=== PATIENT | female | born 1940 | race Caucasian/White ===

== ENCOUNTER → 2024-07-25 | Outpatient (CLI) | payer MEDICARE, SELFPAY ==
[2024-07-25 10:12] LABS: Basophils # (Auto) 0.1 Thou/mm3 (0.0-0.2); Basophils % (Auto) 1 % (0-2.5); Eosinophils # (Auto) 0.3 Thou/mm3 (0.0-0.5); Eosinophils % (Auto) 6 % (0-10); Hematocrit 41.6 % (36.0-46.0); Hemoglobin 13.5 g/dL (12.0-16.0); Immature Granulocytes % (Auto) 0 % (0-0); Immature Granulocytes Auto 0.01 Thou/mm3 (0.00-0.00); Lymphocytes # (Auto) 1.6 Thou/mm3 (1.0-4.8); Lymphocytes % (Auto) 28 % (10-50); Mean Corpuscular HGB Conc 32.5 g/dl (31.0-37.0); Mean Corpuscular Hemoglobin 30.9 pg (25.0-35.0); Mean Corpuscular Volume 95 fL (80-100); Monocytes # (Auto) 0.5 Thou/mm3 (0.0-0.8); Monocytes % (Auto) 9 % (0-12); Neutrophils # (Auto) 3.3 Thou/mm3 (1.8-7.7); Neutrophils % (Auto) 56 % (37-80); Nucleated Red Blood Cell % 0 /100 WBC (0); Platelet Count 217 Thou/mm3 (140-440); RDW Standard Deviation 48.3 fL (36.4-46.3); Red Blood Count 4.37 Miln/mm3 (4.00-5.20); White Blood Count 5.8 Thou/mm3 (3.6-11.0)
[2024-07-25 10:43] LABS: Folate 10.96 ng/mL (>5.38); Vitamin B12 283 pg/mL (211-911)
[2024-07-25 10:52] LABS: Alanine Aminotransferase 18 U/L (10-49); Albumin, Serum 4.4 gm/dL (3.4-4.8); Albumin/Globulin Ratio 1.7 (1.2-2.2); Alkaline Phosphatase 74 U/L (46-116); Anion Gap 10 (7-16); Aspartate Amino Transferase 16 U/L (0-34); BUN/Creatinine Ratio 31 Ratio (12-20); Bilirubin,Total 0.6 mg/dL (0.3-1.2); Blood Urea Nitrogen 25 mg/dL (9-23); Calcium 9.7 mg/dL (8.3-10.6); Calcium (Corrected) 9.7 mg/dL (8.5-10.1); Carbon Dioxide 24.7 mMol/L (20.0-31.0); Cardiac Risk Estimate 2.8 RATIO (3.7-5.6); Chloride 106 mMol/L (98-107); Cholesterol 177 mg/dL (132-200); Creatinine (Component) 0.8 mg/dL (0.6-1.3); Globulin 2.6 gm/dL (2.3-3.5); Glucose 106 mg/dL (74-106); HDL Cholesterol 63 mg/dL (40-60); LDL Cholesterol,Calculated 98 mg/dL (0-130); Osmolality,Calculated 285 (275-295); Potassium 4.4 mMol/L (3.4-5.1); Sodium 141 mMol/L (136-145); Thyroid Stimulating Hormone 4.39 uIU/mL (0.55-4.78); Triglycerides 82 mg/dL (30-150); eGFR > 60 See Note
[2024-07-25 10:53] LABS: Glucose Estimated Average 114 mg/dL (80-131); Hemoglobin A1C 5.6 % Hgb (4.8-6.0)
[2024-07-25 11:35] LABS: Cocci Serology, IgM Negative (Negative)
[2024-07-27 16:07] LABS: Cocci Serology, IgG Negative (Negative)
== END | disposition home or self-care (01) ==
PROVIDERS: PCP Internal Medicine; Referring Provider Internal Medicine; Visit Provider Internal Medicine
DX: K58.9 Irritable bowel syndrome, unspecified (principal); N39.0 Urinary tract infection, site not specified; N39.45 Continuous leakage; B96.89 Other specified bacterial agents as the cause of diseases classified elsewhere; N39.46 Mixed incontinence; R20.2 Paresthesia of skin; R25.2 Cramp and spasm; R35.0 Frequency of micturition; R42 Dizziness and giddiness; R61 Generalized hyperhidrosis; R73.03 Prediabetes; Z79.899 Other long term (current) drug therapy
CPT/HCPCS: 36415; 80053; 80061; 82306; 82607; 82746; 83036; 83735; 84443; 85025; 86331; 86635

== ENCOUNTER → 2024-08-28 | Outpatient (CLI) | payer MEDICARE, BC, SELFPAY ==
--- NOTE | 2024-08-28 10:30 | XR_ITS ---
Examination: Arterial duplex lower extremity study. Date and time of exam: August 28, 2024 1027 hours INDICATIONS: Cold lower extremities 3 months, diagnosis hypertension Findings: Duplex sonographic imaging of the lower extremity arteries using B-mode/Cummings scale imaging and Doppler spectral analysis and color flow. Ankle brachial indices have been recorded. Right common femoral artery demonstrates triphasic flow. Right superficial femoral artery demonstrates triphasic flow. Right popliteal artery demonstrates triphasic flow. Right posterior tibial artery demonstrated triphasic flow. Right ankle/brachial index is 1.2. Left common femoral artery demonstrates triphasic flow. Left superficial femoral artery demonstrates triphasic flow. Left popliteal artery demonstrates triphasic flow. Left posterior tibial artery demonstrated triphasic flow. Left ankle/brachial index is 1.1. Impression: Negative study
== END | disposition home or self-care (01) ==
LOC: CDIM 10:09
PROVIDERS: Referring Provider Internal Medicine; Visit Provider Internal Medicine
DX: R20.9 Unspecified disturbances of skin sensation (principal)
CPT/HCPCS: 93925

== ENCOUNTER 2025-01-04 15:37 | Emergency (ER) | payer MEDICARE, BC, SELFPAY ==
[2025-01-04 15:37] VITALS: BMI 31.9
[2025-01-04 15:57] VITALS: BP 126/75; PULSE 85; RESP 16; TEMP 36.8; O2SAT 95
--- NOTE | 2025-01-04 16:11 | PD.EDRME ---
Rapid Medical Screening Exam RME Arrival date/time: 01/04/25 15:37 Chief Complaint: Syncope / Near Syncope Time Seen by Provider: 01/04/25 16:01 Vital signs: Vital Signs Temperature 98.3 F 01/04/25 15:57 Pulse Rate 85 01/04/25 15:57 Respiratory Rate 16 01/04/25 15:57 Blood Pressure 126/75 01/04/25 15:57 Pulse Oximetry (%) 95 01/04/25 15:57 Oxygen Delivery Method Room Air 01/04/25 15:57 RME Narrative: 84-year-old female brought in by her grandson was sent over by urgent care after concerns of a UTI and thought she had sepsis however patient does not have fever nor increased heart rate. States at one time 4 years ago she was very confused and it turns out she was having a UTI and feels exactly like that again. Was told Eliquis and Rocephin cannot be given together.
[2025-01-04 17:13] LABS: Collection Type, Urine Clean Catch
[2025-01-04 17:36] LABS: Lactate (Lactic Acid) 1.5 mMol/L (0.4-2.0)
[2025-01-04 17:38] LABS: Base Excess, Venous -1 (-3-3); Basophils # (Auto) 0.0 Thou/mm3 (0.0-0.2); Basophils % (Auto) 1 % (0-2.5); Eosinophils # (Auto) 0.1 Thou/mm3 (0.0-0.5); Eosinophils % (Auto) 2 % (0-10); Hematocrit 41.5 % (36.0-46.0); Hemoglobin 13.7 g/dL (12.0-16.0); Immature Granulocytes Auto 0.02 Thou/mm3 (0.00-0.00); Lymphocytes # (Auto) 1.9 Thou/mm3 (1.0-4.8); Lymphocytes % (Auto) 32 % (10-50); Mean Corpuscular HGB Conc 33.0 g/dl (31.0-37.0); Mean Corpuscular Hemoglobin 32.2 pg (25.0-35.0); Mean Corpuscular Volume 98 fL (80-100); Monocytes # (Auto) 0.5 Thou/mm3 (0.0-0.8); Monocytes % (Auto) 9 % (0-12); Neutrophils # (Auto) 3.3 Thou/mm3 (1.8-7.7); Neutrophils % (Auto) 56 % (37-80); Nucleated Red Blood Cell # 0.00 Thou/mm3 (0.00-0.00); Nucleated Red Blood Cell % 0 /100 WBC (0); O2 Saturation, Venous 80 % (96-97); PCO2, Venous 35 mmHg (36-56); PO2, Venous 40 mmHg (15-58); Platelet Count 198 Thou/mm3 (140-440); RDW Standard Deviation 47.0 fL (36.4-46.3); Red Blood Count 4.25 Miln/mm3 (4.00-5.20); White Blood Count 5.9 Thou/mm3 (3.6-11.0); pH, Venous 7.43 (7.33-7.66)
[2025-01-04 17:49] LABS: Bacteria,Urine 4+; Bilirubin,Urine Negative (Negative); Blood,Urine Negative (Negative); Clarity,Urine Clear (Clear/Hazy); Color,Urine Lt-Yellow (Lt Yel-Yel); Glucose, Urine Negative (Negative); Ketones,Urine Negative (Negative); Leukocyte Esterase,Urine Positive (Negative); Nitrite,Urine Negative (Negative); PH,Urine 5.0 (5.0-7.0); Protein,Urine Negative (Neg - Trace); RBC,Urine 5 /hpf (0-3); Specific Gravity,Urine 1.028 (1.001-1.035); Squamous Epithelial Cell,Urine 4 /hpf (0-5); Urobilinogen,Urine Negative mg/dL (0.0-1.0); WBC,Urine 37 /hpf (0-5)
[2025-01-04 18:02] LABS: Anion Gap 11 (7-16); BUN/Creatinine Ratio 20 Ratio (12-20); Blood Urea Nitrogen 20 mg/dL (9-23); Carbon Dioxide 24.3 mMol/L (20.0-31.0); Chloride 106 mMol/L (98-107); Creatinine (Component) 1.0 mg/dL (0.6-1.3); Estimated Creatinine Clearance 44.0 mL/min (>60); Glucose 102 mg/dL (74-106); Potassium 4.2 mMol/L (3.4-5.1); Sodium 141 mMol/L (136-145); eGFR 55 See Note
[2025-01-04 18:03] LABS: Alanine Aminotransferase 15 U/L (10-49); Albumin, Serum 4.4 gm/dL (3.4-4.8); Albumin/Globulin Ratio 1.8 (1.2-2.2); Alkaline Phosphatase 70 U/L (46-116); Aspartate Amino Transferase 17 U/L (0-34); Bilirubin,Total 0.5 mg/dL (0.3-1.2); Calcium 10.4 mg/dL (8.3-10.6); Calcium (Corrected) 10.4 mg/dL (8.5-10.1); Globulin 2.5 gm/dL (2.3-3.5); Lipase 17 U/L (12-53); Osmolality,Calculated 283 (275-295); Procalcitonin 0.06 ng/ml (0.0-0.49); Total Protein 6.9 gm/dL (5.7-8.2)
[2025-01-04 19:24] VITALS: BP 165/86; PULSE 79; RESP 18; O2SAT 96
--- NOTE | 2025-01-04 19:30 | PD.EDFMALE ---
ED Female Urogenital RME/HPI General Chief complaint: Syncope / Near Syncope Stated complaint: NEAR SYNCOPE Time Seen by Provider: 01/04/25 16:01 Arrival date/time: 01/04/25 15:37 RME / HPI RME / HPI Narrative: 84-year-old female brought in by her grandson was sent over by urgent care after concerns of a UTI and thought she had sepsis however patient does not have fever nor increased heart rate. States at one time 4 years ago she was very confused and it turns out she was having a UTI and feels exactly like that again. Was told Eliquis and Rocephin cannot be given together. Related Data Home Medications ?Medication ?Instructions ?Recorded ?Confirmed losartan 100 mg tablet 100 mg PO QDAY 03/02/20 12/06/21 amlodipine 5 mg tablet 5 mg PO QDAY 06/03/21 12/06/21 dicyclomine 10 mg capsule 10 mg PO TID 06/03/21 12/06/21 escitalopram oxalate 10 mg tablet 10 mg PO QDAY 06/03/21 12/06/21 famotidine 40 mg tablet 40 mg PO HS 06/03/21 12/06/21 mupirocin 2 % topical ointment See Rx Instructions .Route .COMPLEX 12/06/21 12/06/21 promethazine 25 mg tablet 1 tab PO BID 12/06/21 12/06/21 Previous Rx's ?Medication ?Instructions ?Recorded cephalexin 500 mg capsule 1,000 mg (2 x 500 mg) PO BID 5 01/04/25 days #20 caps Allergies Allergy/AdvReac Type Severity Reaction Status Date / Time Penicillins Allergy Severe Rash, HIVES Verified 12/06/21 09:08 codeine AdvReac Severe PASSES OUT Verified 12/06/21 09:08 ED Exam Narrative Physical exam: Generally patient is alert and in no obvious distress, heart regular rate and rhythm, lungs clear to auscultation equal bilaterally, abdomen soft bowel sounds present nondistended nontender. Neurologic exam no motor deficit [place] Coma Scale is 15, skin is warm and dry without rash Course Quality Measures none Orders Category Date Time Status Blood Culture (Lab) Stat Lab 01/04/25 17:12 Received CBC Stat Lab 01/04/25 17:12 Completed CMP [Comprehensive Metabolic Panel] Stat Lab 01/04/25 17:12 Completed Lactic Acid [Lactate (Lactic Acid)] Stat Lab 01/04/25 17:12 Completed Lipase Stat Lab 01/04/25 17:12 Completed Procalcitonin Stat Lab 01/04/25 17:12 Completed UA [Urinalysis] Stat Lab 01/04/25 17:00 Completed VBG [Venous Blood Gas] Stat Lab 01/04/25 17:12 Completed cefTRIAXone [Rocephin] 1,000 mg Med 01/04/25 19:32 Pending Lidocaine 1% 20 ml [Xylocaine 1% 20 ML] 2.1 ml IM X1 Vital Signs Vital signs: Vital Signs Temperature 98.3 F 01/04/25 15:57 Pulse Rate 85 01/04/25 15:57 Respiratory Rate 16 01/04/25 15:57 Blood Pressure 126/75 01/04/25 15:57 Pulse Oximetry (%) 95 01/04/25 15:57 Oxygen Delivery Method Room Air 01/04/25 15:57 Urogenital - Female MDM Narrative MDM Narrative:: Patient has no SIRS criteria. I interpreted all labs. Urine is infected. Patient received Rocephin 1 g IM. Cephalexin as prescribed. Follow-up with her doctor. Return to ER as needed or if condition worsens. Patient data External records reviewed:: Other (specify) Clinical information provided by:: none Social determinants that could affect healthcare access:: none Patient has the following chronic illnesses:: None How is presenting disease/condition affected by chronic disease/condition?: no chronic disease Evaluation data The following diagnostics were reviewed and interpreted by me:: other (specify) Lab and/or radiology exams considered but not ordered:: None Interpretation Summary: None Medications / Prescriptions Medications or Prescriptions considered but not ordered:: None Medication administrations:: Medication Administration History Ceftriaxone Sodium 1,000 mg/ (Lidocaine HCl 2.1 ml) 0 mg IM X1 ONE Stop: 01/04/25 19:33 None Consultations Consultation(s) initiated? (list below): No Diagnosis Urogenital Female Differential Diagnosis: urinary tract infection and cystitis Most likely diagnosis given after review of the tests above:: None Admission Indicated Admission indicated?: not indicated Admission Request Was there a request for admission?: No Disposition Plan Disposition Plan: Discharge Discharge Attestation Discharge Attestation: The patient and all family members were given an opportunity to ask questions and understood the discharge instructions. Discharge instructions specifically effects, indications for sooner follow up or return to the emergency department, and the expected course of current diagnosis. Patient condition: Stable Discharge Plan Plan Patient Disposition: HOME (Self Care) Prescriptions/Referrals Prescriptions/Med Rec: New cephalexin 500 mg capsule 1,000 mg PO BID 5 Days Qty: 20 0RF No Action famotidine 40 mg tablet 40 mg PO HS amlodipine 5 mg tablet 5 mg PO QDAY dicyclomine 10 mg capsule 10 mg PO TID escitalopram oxalate 10 mg tablet 10 mg PO QDAY losartan 100 mg tablet 100 mg PO QDAY promethazine 25 mg tablet 1 tab PO BID Patient Comments: TAKE ONE TABLET BY MOUTH IN THE MORNING AND AT BEDTIME Rx Instructions: TAKE 1 TABLET BY MOUTH IN THE MORNING AND IN THE EVENING mupirocin 2 % ointment See Rx Instructions .ROUTE .COMPLEX Patient Comments: APPLY TO AFFECTED AREA ON CHEEK TWICE A DAY FOR 2 WEEKS THEN NEEDED Rx Instructions: APPLY TO AFFECTED AREA ON CHEEK TWICE A DAY FOR 2 WEEK TEN NEEDED Referrals: Mendy Mendez MD [Primary Care Provider] - In 1 week Problem List Clinical Impression: Acute UTI Patient/Caregiver Discharge Instructions Education Materials: Urinary Tract Infections in Women Additional Instructions: Take the antibiotic as prescribed. Follow-up with your doctor. Return to ER as needed or if condition worsens. Print Language: Albanian Stand Alone Forms: [facility] Award Info., Patient Portal Info Letter
--- NOTE | 2025-01-04 19:42 | PD.EDADDENDU ---
Emergency Room Addendum Addendum Narrative: HPI: 84-year-old female with a 2-day history of feeling weak and out of it. No fevers. No vomiting. No chest pain or shortness of breath. She has felt like this in the past whenever she has a urine infection. She was seen and evaluated in outside urgent care today and referred here to the emergency room for further treatment and evaluation for a possible urinary tract infection. Patient denies any back pain.
[2025-01-04] MEDS: cefTRIAXone 1,000 MG, LIDOCAINE 1% 20 ML 2.1 ML IM (20:10)
== END 2025-01-04 20:17 | disposition home or self-care (01) ==
PROVIDERS: Physician Assistant; Emergency Provider Emergency Medicine; PCP Internal Medicine
DX: N39.0 Urinary tract infection, site not specified (principal)
CPT/HCPCS: 36415; 80053; 81001; 82803; 83605; 83690; 84145; 85025; 87040; 96372; 99283; J0696; J3490

== ENCOUNTER → 2025-01-09 | Outpatient (CLI) | payer MEDICARE, BC, SELFPAY ==
--- NOTE | 2025-01-09 13:18 | XR_ITS ---
Examination: PA lateral chest 2 views TECHNIQUE: Upright PA lateral chest 2 views Date and time: January 09, 2025 1327 hours, comparison February 14, 2024 INDICATIONS: Chest wall pain beginning one month ago. FINDINGS: Normal heart size Ectatic thoracic aorta. Accentuation bronchovascular markings more prominent at the left base No pulmonary edema Severe osteopenia IMPRESSION: Basilar bronchitis pattern
== END | disposition home or self-care (01) ==
LOC: COPL 13:05 → CDIM 01-27 11:10
PROVIDERS: PCP Internal Medicine; Referring Provider Internal Medicine; Visit Provider Internal Medicine
DX: R07.89 Other chest pain (principal)
CPT/HCPCS: 71046

== ENCOUNTER → 2025-01-21 | Outpatient (CLI) | payer MEDICARE, BC, SELFPAY ==
[2025-01-21 18:06] LABS: Clostridium Difficile PCR Negative (Negative)
== END | disposition home or self-care (01) ==
LOC: SLDO 13:40
PROVIDERS: PCP Internal Medicine; Referring Provider Internal Medicine; Visit Provider Internal Medicine
DX: R19.7 Diarrhea, unspecified (principal)
CPT/HCPCS: 87493

== ENCOUNTER 2025-04-09 13:36 | Emergency (ER) | payer MEDICARE, BC, SELFPAY ==
[2025-04-09] VITALS (7 sets, daily range): BP systolic 94–151; BP diastolic 52–81; PULSE 84–114; RESP 16–20; TEMP 36.7–37.3; O2SAT 93–96; BMI 29.0
--- NOTE | 2025-04-09 14:00 | PC.NURSE ---
pt brought in by ambulance due to increased weakness and having uti and not getting better. pt has been on abx po therapy and recently switched but not feeling any better and has increased weakness throughout body and freq urination. no fever.
--- NOTE | 2025-04-09 14:11 | EKG_ITS ---
[facility] Test Date: 2025-04-09 Pat Name: DONOVAN NAQVI Department: Room: - Gender: Female Enrolled Agent: : [id number] Requested By: Gema Lama Order Number: [id number] Reading MD: Gema Lama Measurements Intervals Yancey Rate: 97 P: 61 CT: 136 QRS: -42 QRSD: 84 T: 66 QT: 324 QTc: 413 Interpretive Statements SINUS RHYTHM WITH OCCASIONAL SUPRAVENTRICULAR PREMATURE COMPLEXES LEFT AXIS DEVIATION [QRS AXIS < -30] PATTERN CONSISTENT WITH PULMONARY DISEASE NONSPECIFIC T-WAVE ABNORMALITY Compared to ECG 06/22/2020 15:05:02 Left-axis deviation now present T-wave abnormality now present /store/S0/[id number]/ecg/[id number].pdf
--- NOTE | 2025-04-09 14:11 | XR_ITS ---
EXAMINATION: AP chest single view TECHNIQUE: Portable upright AP chest single view Date and time: April 09, 2025, 1419 hours INDICATIONS: Chest pain weakness today. FINDINGS: Suspicious for early pneumonia left base obscuring detail left hemidiaphragm Minor prominence left ventricle Ectatic thoracic aorta. Mild vascular congestion. Severe osteopenia IMPRESSION: Suspicious for early pneumonia left base
[2025-04-09] MEDS: SODIUM CHLORIDE 0.9% 1000 ML 1,000 ML 999 ML IV (14:23)
[2025-04-09 15:09] LABS: Lactate (Lactic Acid) 1.5 mMol/L (0.4-2.0)
[2025-04-09 15:15] LABS: Basophils # (Auto) 0.0 Thou/mm3 (0.0-0.2); Basophils % (Auto) 1 % (0-2.5); Eosinophils # (Auto) 0.2 Thou/mm3 (0.0-0.5); Eosinophils % (Auto) 3 % (0-10); Hematocrit 40.7 % (36.0-46.0); Hemoglobin 13.2 g/dL (12.0-16.0); Immature Granulocytes Auto 0.01 Thou/mm3 (0.00-0.00); Lymphocytes # (Auto) 1.3 Thou/mm3 (1.0-4.8); Lymphocytes % (Auto) 22 % (10-50); Mean Corpuscular HGB Conc 32.4 g/dl (31.0-37.0); Mean Corpuscular Hemoglobin 32.1 pg (25.0-35.0); Mean Corpuscular Volume 99 fL (80-100); Monocytes # (Auto) 0.5 Thou/mm3 (0.0-0.8); Monocytes % (Auto) 9 % (0-12); Neutrophils # (Auto) 4.0 Thou/mm3 (1.8-7.7); Neutrophils % (Auto) 66 % (37-80); Nucleated Red Blood Cell # 0.00 Thou/mm3 (0.00-0.00); Nucleated Red Blood Cell % 0 /100 WBC (0); Platelet Count 221 Thou/mm3 (140-440); RDW Standard Deviation 47.9 fL (36.4-46.3); Red Blood Count 4.11 Miln/mm3 (4.00-5.20); White Blood Count 6.1 Thou/mm3 (3.6-11.0)
[2025-04-09 15:38] LABS: INR 1.0 (0.9-1.3); Partial Thromboplastin Time 28.9 Seconds (22.0-36.0); Prothrombin Time 10.8 Seconds (9.0-12.2)
[2025-04-09 15:40] LABS: B-Type Natriuretic Peptide < 20 pg/mL (0-100)
[2025-04-09 15:50] LABS: Alanine Aminotransferase 17 U/L (10-49); Albumin, Serum 4.6 gm/dL (3.4-4.8); Albumin/Globulin Ratio 1.7 (1.2-2.2); Alkaline Phosphatase 74 U/L (46-116); Anion Gap 10 (7-16); Aspartate Amino Transferase 23 U/L (0-34); BUN/Creatinine Ratio 15 Ratio (12-20); Bilirubin,Total 0.6 mg/dL (0.3-1.2); Blood Urea Nitrogen 23 mg/dL (9-23); Calcium 9.7 mg/dL (8.3-10.6); Calcium (Corrected) 9.7 mg/dL (8.5-10.1); Carbon Dioxide 26.0 mMol/L (20.0-31.0); Chloride 104 mMol/L (98-107); Creatinine (Component) 1.5 mg/dL (0.6-1.3); Estimated Creatinine Clearance 28.5 mL/min (>60); Globulin 2.7 gm/dL (2.3-3.5); Glucose 110 mg/dL (74-106); Lipase 20 U/L (12-53); Magnesium 2.3 mg/dL (1.6-2.6); Osmolality,Calculated 284 (275-295); Potassium 5.0 mMol/L (3.4-5.1); Procalcitonin 0.07 ng/ml (0.0-0.49); Sodium 140 mMol/L (136-145); Total Protein 7.3 gm/dL (5.7-8.2); Troponin I < 0.020 ng/mL (0.0-0.045); eGFR 34 See Note
--- NOTE | 2025-04-09 16:21 | PD.EDWEAK ---
ED Weakness RME/HPI General Chief complaint: General Adult/Misc Complain Stated complaint: WEAKNESS Time Seen by Provider: 04/09/25 13:46 Arrival date/time: 04/09/25 13:36 RME / HPI RME / HPI Narrative: 85 year old female with history of hiatal hernia repair at [facility] 3 years ago, hypertension, hyperlipidemia, pulmonary embolism presents to the ED with complaint of global weakness and a sensation of not feeling right. Patient reports experiencing a tingling sensation throughout her body. States 9 days ago the patient consulted with urologist for urinary incontinence and underwent a cystoscopy. Following the procedure, she was prescribed antibiotics, but two days ago, she was contacted and switched to Bactrim based on the results of a urine culture. She has been on Bactrim since then. Patient denies any associated fever, chills, cough, or urinary symptoms. Also denies any vomiting, diarrhea, or abdominal pain. Related Data Home Medications ?Medication ?Instructions ?Recorded ?Confirmed losartan 100 mg tablet 100 mg PO QDAY 03/02/20 12/06/21 amlodipine 5 mg tablet 5 mg PO QDAY 06/03/21 12/06/21 dicyclomine 10 mg capsule 10 mg PO TID 06/03/21 12/06/21 escitalopram oxalate 10 mg tablet 10 mg PO QDAY 06/03/21 12/06/21 famotidine 40 mg tablet 40 mg PO HS 06/03/21 12/06/21 mupirocin 2 % topical ointment See Rx Instructions .Route .COMPLEX 12/06/21 12/06/21 promethazine 25 mg tablet 1 tab PO BID 12/06/21 12/06/21 Allergies Allergy/AdvReac Type Severity Reaction Status Date / Time Penicillins Allergy Severe Rash, HIVES Verified 04/09/25 13:42 codeine AdvReac Severe PASSES OUT Verified 04/09/25 13:42 Review of Systems Review of Systems Systems Reviewed: All systems reviewed, normal except as documented Past Medical History Past Medical History CARDIAC: Positive Hypertension RESPIRATORY: Positive Sleep Apnea GASTROINTESTINAL: Positive Gastrointestinal Disorders, Gall Bladder Disease, Hiatal Hernia, Gastroesophageal Reflux Disease and Obesity REPRODUCTIVE: Positive Previous Pregnancies MUSCULOSKELETAL: Positive Musculoskeletal Disorders, Arthritis and Degenerative Joint Disease ENT: Positive Cataracts and Deafness PSYCHO/SOCIAL: Positive Depression and Anxiety OTHER HISTORY: Positive Falls, Blood Transfusions, Chicken Pox, Measles and Mumps Family History FAMILY HISTORY: Positive Family Cardiac Disorders and Family Cancer Surgical History SURGICAL: Positive Joint Replacement; Negative Mastectomy Social History SMOKING STATUS: Never smoker SUBSTANCE USE: does not use ED Exam Narrative Physical exam: GENERAL APPEARANCE: alert and oriented x 4, well-developed, well-nourished, no acute distress HEENT: Normocephalic, atraumatic; pupils equal, round, reactive to light; EOMI; mucous membranes pink, moist; oropharynx clear NECK: Supple LUNGS: CTABL; no wheezes, no rales, no rhonchi HEART: Regular rate, regular rhythm; normal S1, S2; no murmurs ABDOMEN: non distended; normal BS; soft, no tenderness, no guarding, no rebound; no masses, no organomegaly, no hernia BACK: no CVA tenderness EXTREMITIES: atraumatic; no edema NEUROLOGIC: awake; alert and oriented x4; cranial nerves II-XII grossly intact; no focal sensory or motor deficits PSYCHIATRIC: appropriate mood and affect SKIN: warm, dry, normal color; no rashes Course Quality Measures none Orders Category Date Time Status Bedside COVID-19 Antigen Test NOW Care 04/09/25 16:32 Active Is Technician NOW Care 04/09/25 14:11 Active EKG (ED ONLY) *Do not use* NOW Care 04/09/25 14:11 Completed EKG (ED Only) Stat Exams 04/09/25 14:11 Draft XR chest 1V portable Stat Exams 04/09/25 14:11 Completed B-Type Natriuretic Peptide Stat Lab 04/09/25 15:03 Completed Blood Culture (Lab) Stat Lab 04/09/25 14:58 Received CBC Stat Lab 04/09/25 15:03 Completed COVID-19 Antigen (In-House) Stat Lab 04/09/25 Ordered Comprehensive Metabolic Panel Stat Lab 04/09/25 15:03 Completed Influenza A & B Rapid Panel Stat Lab 04/09/25 16:32 Ordered Lactate (Lactic Acid) Stat Lab 04/09/25 15:03 Completed Lipase Stat Lab 04/09/25 15:03 Completed Magnesium Stat Lab 04/09/25 15:03 Completed Partial Thromboplastin Time Stat Lab 04/09/25 15:03 Completed Procalcitonin Stat Lab 04/09/25 15:03 Completed Prothrombin Time with INR Stat Lab 04/09/25 15:03 Completed Troponin I Stat Lab 04/09/25 15:03 Completed Urinalysis Stat Lab 04/09/25 16:54 Received Urine Culture Stat Lab 04/09/25 16:54 Received Sodium Chloride 0.9% 1000 ml [Ns] 1,000 ml Med 04/09/25 14:14 Discontinued IV 999 mls/hr Vital Signs Vital signs: Vital Signs Temperature 98.6 F 04/09/25 13:55 Pulse Rate 114 H 04/09/25 13:55 Respiratory Rate 16 04/09/25 13:55 Blood Pressure 94/52 L 04/09/25 13:55 Pulse Oximetry (%) 93 L 04/09/25 13:55 Oxygen Delivery Method Room Air 04/09/25 13:55 Weakness MDM Narrative MDM Narrative:: Kellie Vasquez am scribing for and in the presence of Dr. Delaney. 1800: Care signed out to Dr. Hope pending UA and final dispo. Patient data External records reviewed:: [facility] previous records and EMS form Clinical information provided by:: patient and EMS Social determinants that could affect healthcare access:: none Patient has the following chronic illnesses:: hiatal hernia repair at [facility] 3 years ago, hypertension, hyperlipidemia, pulmonary embolism How is presenting disease/condition affected by chronic disease/condition?: exacerbated by Evaluation data The following diagnostics were reviewed and interpreted by me:: lab results, radiology exam(s) and EKG tracing(s) (EKG @ 14:18, normal sinus rhythm, rate 97, left axis deviation. ) Lab and/or radiology exams considered but not ordered:: None Interpretation Summary: Ordering Physician: Gema Delaney MD Date of Service: 04/09/25 Procedure(s): XR chest 1V portable Accession Number(s): [id number] cc: Han Moncada MD; Gema Delaney MD~ EXAMINATION: AP chest single view TECHNIQUE: Portable upright AP chest single view Date and time: April 09, 2025, 1419 hours INDICATIONS: Chest pain weakness today. FINDINGS: Suspicious for early pneumonia left base obscuring detail left hemidiaphragm Minor prominence left ventricle Ectatic thoracic aorta. Mild vascular congestion. Severe osteopenia IMPRESSION: Suspicious for early pneumonia left base Dictated By: Han Moncada MD Signed By: <Electronically signed by Han Moncada MD in OV> 04/09/25 1440 Medications / Prescriptions Medications or Prescriptions considered but not ordered:: None Medication administrations:: Medication Administration History Discontinued Medications Sodium Chloride (Ns) 1,000 mls @ 999 mls/hr IV .Q1H1M ONE Stop: 04/09/25 15:14 Last Infusion: 04/09/25 17:09 Dose: Infused Documented By: Admin: 04/09/25 14:23 Dose: 999 mls/hr Documented By: VIRI See above Consultations Consultation(s) initiated? (list below): No Diagnosis Weakness Differential Diagnosis: anemia, hypoglycemia, sepsis, dehydration and other (UTI ) Most likely diagnosis given after review of the tests above:: Weakness Admission Indicated Admission indicated?: not indicated Admission Request Was there a request for admission?: No Disposition Plan Disposition Plan: other (specify) (Care signed out to Dr. Hope) Discharge Plan Prescriptions/Referrals Prescriptions/Med Rec: No Action famotidine 40 mg tablet 40 mg PO HS amlodipine 5 mg tablet 5 mg PO QDAY dicyclomine 10 mg capsule 10 mg PO TID escitalopram oxalate 10 mg tablet 10 mg PO QDAY losartan 100 mg tablet 100 mg PO QDAY promethazine 25 mg tablet 1 tab PO BID Patient Comments: TAKE ONE TABLET BY MOUTH IN THE MORNING AND AT BEDTIME Rx Instructions: TAKE 1 TABLET BY MOUTH IN THE MORNING AND IN THE EVENING mupirocin 2 % ointment See Rx Instructions .ROUTE .COMPLEX Patient Comments: APPLY TO AFFECTED AREA ON CHEEK TWICE A DAY FOR 2 WEEKS THEN NEEDED Rx Instructions: APPLY TO AFFECTED AREA ON CHEEK TWICE A DAY FOR 2 WEEK TEN NEEDED Referrals: Ayanna Mendez MD [Primary Care Provider] - In 1 week Problem List Clinical Impression: Generalized weakness Patient/Caregiver Discharge Instructions Print Language: Turkmen
[2025-04-09 18:10] LABS: Collection Type, Urine Clean Catch
[2025-04-09 19:27] LABS: Influenza A Ag Negative; Influenza B Ag Negative
[2025-04-09 19:28] LABS: Bilirubin,Urine Negative (Negative); Blood,Urine Negative (Negative); Clarity,Urine Clear (Clear/Hazy); Color,Urine Yellow (Lt Yel-Yel); Glucose, Urine Negative (Negative); Hyaline Casts,Urine < 1 /hpf (0-1); Ketones,Urine Trace (Negative); Leukocyte Esterase,Urine Positive (Negative); Nitrite,Urine Negative (Negative); PH,Urine 6.0 (5.0-7.0); Protein,Urine Negative (Neg - Trace); RBC,Urine 1 /hpf (0-3); Specific Gravity,Urine 1.024 (1.001-1.035); Squamous Epithelial Cell,Urine 3 /hpf (0-5); Urobilinogen,Urine Negative mg/dL (0.0-1.0); WBC,Urine 4 /hpf (0-5)
[2025-04-09 19:28] LABS: COVID-19 Antigen (In-House) Negative (Negative)
--- NOTE | 2025-04-09 20:04 | PD.EDADDENDU ---
Emergency Room Addendum Addendum Narrative: Please see previous note by Dr. Contreras. She did a complete history and physical exam on this patient. Patient was signed out to me at approximately 1800 pending repeat urinalysis. Patient states that she just generally does not feel well the last few days. She has been on Bactrim for UTI. Physical exam, vital signs are stable here in the emergency department. Lungs are clear bilaterally, abdomen is soft nontender nondistended. Otherwise the patient has no pedal edema. Patient does not state that she has a fever, she feels better after IV fluids. Chest x-ray is reviewed and interpreted by me. Early left lower lobe pneumonia, no pleural effusion, no CHF, no cardiomegaly. Plan to add doxycycline for early left lower lobe pneumonia seen on chest x-ray. The patient has her daughter who will come pick her up. She feels very comfortable going home. At this time she has 94% on room air and that is stable for discharge. Assessment and plan left lower lobe pneumonia.
[2025-04-09] MEDS: DOXYCYCLINE 100 MG TABLET PO (20:09)
== END 2025-04-09 21:00 | disposition home or self-care (01) ==
PROVIDERS: Emergency Medicine; Emergency Provider Emergency Medicine; PCP Internal Medicine
DX: J18.9 Pneumonia, unspecified organism (principal); I49.1 Atrial premature depolarization; I10 Essential (primary) hypertension; E78.5 Hyperlipidemia, unspecified
CPT/HCPCS: 36415; 71045; 80053; 81001; 83605; 83690; 83735; 83880; 84145; 84484; 85025; 85610; 85730; 87040; 87086; 87502; 87811; 93005; 96360; 96361; 99284; J7030; A9270

== ENCOUNTER → 2025-05-05 | Outpatient (CLI) | payer MEDICARE, BC, SELFPAY ==
--- NOTE | 2025-05-05 10:30 | XR_ITS ---
EXAM: Upper GI series INDICATION: Dysphagia. DATE: 05/05/2025, 10:32 a.m. PROCEDURE: After discussion of risks and benefits informed consent was obtained. Exam performed with single contrast thin barium. Images obtained in the upright position and in multiple prone, lateral and oblique projections. Contrast passes normally from the oropharynx through the esophagus into the stomach without evidence of delay. No evidence of esophageal masses, strictures, diverticulum or mucosal abnormality. There is a prominent hiatal hernia. Visualized stomach and duodenum otherwise unremarkable without evidence of mass, stricture, diverticulum or mucosal abnormality. No evidence of gastroesophageal reflux demonstrated during this exam. IMPRESSION: Hiatal hernia. Otherwise negative exam
== END | disposition home or self-care (01) ==
LOC: SDIM 10:03
PROVIDERS: PCP Internal Medicine; Referring Provider Specialist; Visit Provider Specialist
DX: K44.9 Diaphragmatic hernia without obstruction or gangrene (principal)
CPT/HCPCS: 74240; A4649